=== PATIENT | female | born 1995 | race Caucasian/White ===

== ENCOUNTER 2016-02-12 12:38 | Emergency (ER) | payer OTHER ==
[~2016-02-12] VITALS: Ht 170.2 cm; Wt 127.0 kg
[2016-02-12 13:23] LABS: ABSOLUTE NEUTROPHILS 9.7 thou/uL (1.4-8.2); BASOPHILS 0.5 % (0.0-2.0); EOSINOPHILS 1.2 % (0.0-3.0); HEMATOCRIT 41.7 % (37.0-47.0); HEMOGLOBIN 13.9 gm/dL (12.0-15.0); LYMPHOCYTES 12.7 % (24.0-44.0); MCH 30.7 pg (26.0-34.0); MCHC 33.3 % (28.0-37.0); MCV 92.1 fL (80.0-100.0); MONOCYTES 5.7 % (1.0-8.0); PLATELET COUNT 268 thou/uL (150-400); POLYS 79.9 % (36.0-66.0); RBC 4.53 mil/uL (4.20-5.00); RDW 12.5 % (10.5-14.5); WBC 12.1 thou/uL (4.0-11.0)
[2016-02-12 13:25] LABS: MANUAL DIFF NO
[2016-02-12 13:29] LABS: CALCIUM 8.9 mg/dL (8.5-10.1); CREATININE 0.9 mg/dL (0.6-1.3); POTASSIUM 4.4 mmol/L (3.5-5.1)
[2016-02-12 13:36] LABS: ALBUMIN 3.6 g/dL (3.4-5.0); TOTAL BILIRUBIN 0.3 mg/dL (<0.1-1.0); TOTAL PROTEIN 7.2 g/dL (6.4-8.2)
[2016-02-12] MEDS ORDERED: SERTRALINE HCL50 MG PO (13:43)
[2016-02-12] MEDS ORDERED: PANTOPRAZOLE SO40 M1 PO (14:03)
[2016-02-12] MEDS ORDERED: BENTYL 20 MG TA20 M1 PO (14:03)
[2016-02-12] MEDS ORDERED: ONDANSETRON HCL4 M2 PO (14:03)
[2016-02-12 14:32] VITALS: BP 122/62
== END 2016-02-12 14:32 | disposition home or self-care (01) ==
LOC: ER 12:38
PROVIDERS: Emergency Medicine
DX: R11.2 Nausea with vomiting, unspecified (principal); R19.7 Diarrhea, unspecified; J45.909 Unspecified asthma, uncomplicated; Z88.1 Allergy status to other antibiotic agents; Z88.0 Allergy status to penicillin; Z88.2 Allergy status to sulfonamides; Z88.8 Allergy status to other drugs, medicaments and biological substances; F10.99 Alcohol use, unspecified with unspecified alcohol-induced disorder